=== PATIENT | female | born 1985 | race Caucasian/White ===

== ENCOUNTER 2018-11-10 10:13 | Emergency (ER) | payer BC ==
[2018-11-10] MEDS ORDERED: Sodium Chloride 0.9% 1,000 ML IV ONE (10:25)
[2018-11-10] MEDS ORDERED: Ketorolac 30 MG/ML SDV IVPUSH ONE (10:49)
--- NOTE | 2018-11-10 10:49 | EDM.PDOC ---
ED HPI GENERAL MEDICAL PROBLEM - General Chief Complaint: General Stated Complaint: ALL OVER PAIN Time Seen by Provider: 11/10/18 10:14 Source of Information: Reports: Patient History Limitations: Reports: No Limitations - History of Present Illness INITIAL COMMENTS - FREE TEXT/NARRATIVE: HISTORY AND PHYSICAL: History of present illness: Patient is a 33-year-old female who presents to the ED today with concerns of generalized pain and headache. Patient states she has a history of MS and thinks she is having a flare. She states over the past couple days she is getting progressively worse generalized pain that she rates an 8 out of 10. States the pain is a dull achy sensation. She states she is always weak but feels more weak over the past couple days. Is still able to perform her routine ADLs. She states the pain includes her legs her arms her back her neck and a headache. States she has not been sick other than the pain she has no concerns. She follows for her MS in [place], where she is from. She states she has not had a real big flare since diagnosis and is only had small indications of the disease prior to today. Patient denies shortness of breath, difficulties breathing, chest pain, diaphoresis, fever, chills, throat pain, cough, nausea, vomiting, or all other GI, , cardiovascular or respiratory concerns. Patient does have a history of MS and denies any other health history. Review of systems: As per history of present illness and below otherwise all systems reviewed and negative. Past medical history: As per history of present illness and as reviewed below otherwise noncontributory. Surgical history: As per history of present illness and as reviewed below otherwise noncontributory. Social history: See social history for further information Family history: As per history of present illness and as reviewed below otherwise noncontributory. Physical exam: General: Patient is alert, oriented, and in no acute distress. She is lying comfortably on exam table. HEENT: Atraumatic, normocephalic, pupils equal and reactive bilaterally, negative for conjunctival pallor or scleral icterus, mucous membranes moist, TMs normal bilaterally, throat clear, neck supple, nontender, trachea midline. No drooling or trismus noted. No meningeal signs. No hot potato voice noted. Lungs: Clear to auscultation, breath sounds equal bilaterally, chest nontender. Heart: S1S2, regular rate and rhythm without overt murmur Abdomen: Soft, nondistended, nontender. Negative for masses or hepatosplenomegaly. Negative for costovertebral tenderness. Pelvis: Stable nontender. Genitourinary: Deferred. Rectal: Deferred. Skin: Intact, warm, dry. No lesions or rashes noted. Extremities: Atraumatic, negative for cords or calf pain. Neurovascular unremarkable. Patient does have generalized weakness in all extremities but equal. Neuro: Awake, alert, oriented. Cranial nerves II through XII unremarkable. Cerebellum unremarkable. Motor and sensory unremarkable throughout. Exam nonfocal. Notes: Labs today are unremarkable. Head CT shows no acute findings. Mr Lauren was involved in this case. Discussed these results with patient and offered admission for steroids for MS exacerbation. Patient states she is comfortable going home on steroids as she has close follow-up already planned on Thursday down in [place] with her primary care provider. Vital signs remain stable. Discussed the risks versus benefits of this. Patient is comfortable going home and will return to the ED if she feels this is necessary. Supportive care measures were reviewed and discussed. Voices understanding and is agreeable to plan of care. Denies any further questions or concerns at this time. Diagnostics: CBC, CMP, influenza, head CT Therapeutics: Toradol, Solu-Medrol Prescription: Medrol Dosepak Impression: 1. Generalized pain 2. History of Multiple Sclerosis Plan: 1. Take medications as prescribed. 2. Please follow-up with your primary care provider as scheduled and as we discussed. 3. Return to the ED as needed and as discussed. Definitive disposition and diagnosis as appropriate pending reevaluation and review of above. legs, arms, lower back Pain Score (Numeric/FACES): 7 - Related Data Allergies Allergy/AdvReac Type Severity Reaction Status Date / Time No Known Allergies Allergy Verified 11/10/18 10:24 Home Meds: Home Meds Control 1 tab PO ASDIRECTED 11/10/18 [History] Cholecalciferol (Vitamin D3) [Vitamin D] 1 tab PO DAILY 11/10/18 [History] Citalopram [Citalopram HBr] 20 mg PO DAILY 11/10/18 [History] Glatiramer Acetate [Copaxone] SQ 11/10/18 [History] Past Medical History HEENT History: Reports: Other (See Below) Other HEENT History: deviated septum Cardiovascular History: Reports: Other (See Below) Other Cardiovascular History: tachycardia Respiratory History: Reports: None Gastrointestinal History: Reports: None Neurological History: Reports: MS, Other (See Below) Other Neuro History: pituitary prolactinoma Psychiatric History: Reports: None - Infectious Disease History Infectious Disease History: Reports: Chicken Pox - Past Surgical History HEENT Surgical History: Reports: Naso-Sinus Surgery, Oral Surgery Endocrine Surgical History: Reports: Pituitary Tumor Resection Neurological Surgical History: Reports: Other (See Below) Social & Family History - Family History HEENT: Reports: None Cardiac: Reports: None Other Dermatologic Family History: MS, Fibromyalgia, DM, CAD - Tobacco Use Smoking Status *Q: Never Smoker - Recreational Drug Use Recreational Drug Use: No - Living Situation & Occupation Living situation: Reports: ED ROS GENERAL - Review of Systems Review Of Systems: ROS reveals no pertinent complaints other than HPI. ED EXAM, GENERAL - Physical Exam Exam: See Below (See dictation) Course - Vital Signs Last Recorded V/S: Last Vital Signs Temp 98.5 F 11/10/18 12:13 Pulse 73 11/10/18 12:13 Resp 12 11/10/18 12:13 BP 147/90 H 11/10/18 12:13 Pulse Ox 95 11/10/18 12:13 - Orders/Labs/Meds Labs: Laboratory Tests 11/10/18 11/10/18 Range/Units 10:31 10:31 WBC 8.82 (4.0-11.0) K/uL RBC 4.63 (4.30-5.90) M/uL Hgb 14.0 (12.0-16.0) g/dL Hct 40.5 (36.0-46.0) % MCV 87.5 (80.0-98.0) fL MCH 30.2 (27.0-32.0) pg MCHC 34.6 (31.0-37.0) g/dL RDW Std Deviation 41.5 (28.0-62.0) fl RDW Coeff of Oliva 13 (11.0-15.0) % Plt Count 298 (150-400) K/uL MPV 9.10 (7.40-12.00) fL Neut % (Auto) 74.6 (48.0-80.0) % Lymph % (Auto) 19.3 (16.0-40.0) % [place] % (Auto) 5.2 (0.0-15.0) % Eos % (Auto) 0.6 (0.0-7.0) % Baso % (Auto) 0.3 (0.0-1.5) % Neut # (Auto) 6.6 H (1.4-5.7) K/uL Lymph # (Auto) 1.7 (0.6-2.4) K/uL [place] # (Auto) 0.5 (0.0-0.8) K/uL Eos # (Auto) 0.1 (0.0-0.7) K/uL Baso # (Auto) 0.0 (0.0-0.1) K/uL Nucleated RBC % 0.0 /100WBC Nucleated RBCs # 0 K/uL Sodium 137 (136-145) mmol/L Potassium 3.8 (3.5-5.1) mmol/L Chloride 104 (98-107) mmol/L Carbon Dioxide 23.7 (21.0-32.0) mmol/L BUN 11 (7.0-18.0) mg/dL Creatinine 0.7 (0.6-1.0) mg/dL Est Cr Clr Drug Dosing 93.68 mL/min Estimated GFR (MDRD) > 60.0 ml/min Glucose 128 H (74-106) mg/dL Calcium 8.9 (8.5-10.1) mg/dL Total Bilirubin 0.2 (0.2-1.0) mg/dL AST 13 L (15-37) IU/L ALT 19 (14-63) IU/L Alkaline Phosphatase 57 (46-116) U/L Total Protein 7.5 (6.4-8.2) g/dL Albumin 3.5 (3.4-5.0) g/dL Globulin 4.0 (2.6-4.0) g/dL Albumin/Globulin Ratio 0.9 (0.9-1.6) Meds: Medications Discontinued Medications Generic Name Dose Route Start Last Admin Trade Name Freq PRN Reason Stop Dose Admin Sodium Chloride 1,000 mls @ 999 mls/hr 11/10/18 10:25 11/10/18 10:36 Normal Saline IV 11/10/18 11:25 999 mls/hr STAT ONE Administration Ketorolac Tromethamine 30 mg 11/10/18 10:49 11/10/18 11:19 Toradol IVPUSH 11/10/18 10:50 30 mg ONETIME ONE Administration Methylprednisolone Sodium Succinate 125 mg 11/10/18 12:15 Solu-Medrol IVPUSH 11/10/18 12:16 ONETIME ONE Departure - Departure Time of Disposition: 12:19 Disposition: Home, Self-Care 01 Clinical Impression: Generalized pain, History of multiple sclerosis - Discharge Information Referrals: Geraldo Pierson MD [Primary Care Provider] - Forms: ED Department Discharge Additional Instructions: The following information is given to patients seen in the emergency department who are being discharged to home. This information is to outline your options for follow-up care. We provide all patients seen in our emergency department with a follow-up referral. The need for follow-up, as well as the timing and circumstances, are variable depending upon the specifics of your emergency department visit. If you don't have a primary care physician on staff, we will provide you with a referral. We always advise you to contact your personal physician following an emergency department visit to inform them of the circumstance of the visit and for follow-up with them and/or the need for any referrals to a consulting specialist. The emergency department will also refer you to a specialist when appropriate. This referral assures that you have the opportunity for follow-up care with a specialist. All of these measure are taken in an effort to provide you with optimal care, which includes your follow-up. Under all circumstances we always encourage you to contact your private physician who remains a resource for coordinating your care. When calling for follow-up care, please make the office aware that this follow-up is from your recent emergency room visit. If for any reason you are refused follow-up, please contact the [facility] Emergency Department at and asked to speak to the emergency department charge nurse. [facility] [address] [place] [id number] [id number] 1. Take medications as prescribed. 2. Please follow-up with your primary care provider as scheduled and as we discussed. 3. Return to the ED as needed and as discussed.
[2018-11-10 11:35] LABS: CHLORIDE,CL 104 mmol/L (98-107); SODIUM,NA 137 mmol/L (136-145)
--- NOTE | 2018-11-10 12:05 | CT ---
Indication: Hand pain. Technique: CT of the head without contrast. Coronal and sagittal reformatted images. Comparison: No prior studies available for comparison at this institution. Findings: No acute intracranial hemorrhage or extra-axial collection. No evidence of acute cortical infarction. No mass effect or midline shift. Normal cerebral volume. The ventricles are normal in size, shape and contour. There is normal kelly and white matter differentiation. The orbital contents are normal. Mild mucosal thickening in the left posterior ethmoid air cells. Mastoid air cells are clear. No calvarial fractures. No lytic or sclerotic osseous lesions within the calvarium or skull base. Scalp and other imaged soft tissue structures are normal. Impression: 1. No acute intracranial abnormality. 2. Mild mucosal thickening in the left posterior ethmoid air cells. Please note that all CT scans at this facility use dose modulation, iterative reconstruction, and/or weight-based dosing when appropriate to reduce radiation dose to as low as reasonably achievable. Dictated by Luis Eduardo Sun MD @ Nov 10 2018 12:01PM Signed by Dr. Luis Eduardo Sun @ Nov 10 2018 12:04PM
[2018-11-10 12:14] VITALS: BP 147/90
[2018-11-10] MEDS ORDERED: methylPREDNISolone Sodium Succinate 125 MG/2 ML SDV IVPUSH ONE (12:15)
== END 2018-11-10 12:41 | disposition home or self-care (01) ==
LOC: MW.ED 10:13
DX: G35 Multiple sclerosis (principal)
CPT/HCPCS: 36415; 70450; 80053; 85025; 87804; 96361; 96372; 96374; 99284; J1885; J2930; J7040